=== PATIENT | male | born 1995 | race Caucasian/White ===

== ENCOUNTER 2021-01-20 03:23 | Inpatient (IN) | payer OTHER ==
[~2021-01-20] VITALS: Ht 177.8 cm; Wt 68.0 kg
[2021-01-20 03:47] LABS: HEMOGLOBIN 12.6 gm/dl (14.0-17.5); RED BLOOD COUNT 4.16 M/UL (4.20-5.50); WHITE BLOOD COUNT 7.6 K/UL (4.5-11.0)
[2021-01-20 04:06] LABS: BUN/CREATININE RATIO 19 (0-10)
[2021-01-21 05:58] LABS: HEMOGLOBIN 11.5 gm/dl (14.0-17.5); RED BLOOD COUNT 3.9 M/UL (4.20-5.50)
[2021-01-21 06:06] LABS: WHITE BLOOD COUNT 5.4 K/UL (4.5-11.0)
[2021-01-21 06:20] LABS: BUN/CREATININE RATIO 17 (0-10)
--- NOTE | 2021-01-21 22:59 | NUR ---
2199 PATIENT TOLD ME THAT HIS RIDE WAS ON THE WAY. I TOLD HIM THAT DR LYNN OR DR KATE HAD NOT PUT IN DISCHARGE ORDERS. PATIENT STATED THAT THIS WAS FINE THAT HIS RIDE WAS ON THE WAY. I EDUCATED PATIENT ABOUT THE POSSIBLE OSTEOMYLITIS IN HIS FOOT AND THAT HE NEEDED TO STAY FOR FURTHUR IV ANTIBIOTIC TREATMENT. PATIENT STATED HE KNEW ALL OF THIS AND WAS NOT GOING TO STAY. [address] LYNN ABOUT PATIENT WANTING TO GO HOME. DR LYNN STATED THE PATIENT HAD MENTIONED EARLIER WHEN HE SPOKE TO HIM THAT HE WAS EITHER GOING TO GO HOME TONIGHT OR TOMORROW DEPENDING ON HIS RIDE SITUATION. DR LYNN EDUCATED HIM PRIOR ON THE NEED TO STAY. 2211 PATIENT LEFT AMA.
== END 2021-01-21 22:14 | disposition left against medical advice (07) | DRG 549 ==
LOC: ER1 03:23 → CDU 06:02 → MED SURG 4 07:22
PROVIDERS: Physician Assistant; ADMIT Internal Medicine Infectious Disease
PROC: 0S9G3ZZ Drainage of Left Ankle Joint, Percutaneous Approach (ICD-10-PCS; principal; 2021-01-21)
DX: M00.872 Arthritis due to other bacteria, left ankle and foot (principal); M86.8X7 Other osteomyelitis, ankle and foot; F19.10 Other psychoactive substance abuse, uncomplicated; Z53.29 Procedure and treatment not carried out because of patient's decision for other reasons; Z20.822 Contact with and (suspected) exposure to COVID-19; Z80.41 Family history of malignant neoplasm of ovary; Z86.19 Personal history of other infectious and parasitic diseases
CPT/HCPCS: 36415; 73701; 73721; 80053; 83605; 83735; 83880; 84100; 85025; 85610; 85652; 85730; 86140; 87040; 87070; 87205; 96374; 99284; J0692; J3370; J7030; J7070; Q9967; U0002